=== PATIENT | female | born 1995 | race Caucasian/White ===

== ENCOUNTER → 2019-10-27 | Outpatient (CLI) | payer OTHER ==
[~2019-10-27] MED LIST: AMOCLA875 PO; BIRTH CONTROL PILL; CEPH250A PO; CETI10 PO; CRUTCH4 USE; DIPH25 PO; DOCU100 PO; ERYT.5TO RIGHTEYE; ESOM20 PO; FLUC150A PO; IBUP800 PO; LABE100 PO; MICO2TCA TOP; NAPR375 PO; OMEP40CA12 PO; ONDA4 PO; ONDA4ODT MM; OXYACE5T PO; PRED20 PO; PROM25 PO; RANI150 PO; RXONDA4ODT MM; SULTRIDS PO; TRIA80TC TOP; Verotin-Gr Cap1 EACH PO; Zofran4 MG PO
== END | disposition home or self-care (01) ==
LOC: LAB SHORT 14:08 → LAB EV 14:08
DX: R07.0 Pain in throat (principal)
CPT/HCPCS: 87081

== ENCOUNTER 2023-03-27 14:08 | Emergency (ER) | payer SELFPAY ==
[~2023-03-27] VITALS: Ht 160 cm; Wt 67.1 kg
[2023-03-27 14:17] VITALS: BP 117/97
[2023-03-27 14:39] LABS: BASOPHILS ABSOLUTE AUTO 0.08 K/mm3 (0.00-0.23); BASOPHILS PERCENT AUTO 1 % (0-2); EOSINOPHILS ABSOLUTE AUTO 0.07 K/mm3 (0.00-0.68); EOSINOPHILS PERCENT AUTO 1 % (0-6); Hematocrit 41.8 % (33.0-51.0); Hemoglobin 14.4 g/dL (11.5-16.0); IMMATURE GRAN ABSOLUTE AUTO 0.04 K/mm3 (0.00-0.10); IMMATURE GRAN PERCENT AUTO 0 % (0-1); LYMPHOCYTES ABSOLUTE AUTO 1.92 K/mm3 (0.84-5.20); LYMPHOCYTES PERCENT AUTO 18 % (21-46); MONOCYTES ABSOLUTE AUTO 0.76 K/mm3 (0.16-1.47); MONOCYTES PERCENT AUTO 7 % (4-13); Mean Corpuscular HGB 31.8 pg (26.0-34.0); Mean Corpuscular HGB Conc 34.4 g/dL (31.5-36.5); Mean Corpuscular Volume 92 fL (80-100); Mean Platelet Volume 9.6 fL (9.1-12.4); NEUTROPHILS ABSOLUTE AUTO 7.75 K/mm3 (1.96-9.15); NEUTROPHILS PERCENT AUTO 73 % (41-73); Platelet Count 270 K/mm3 (150-400); RDW Coefficient Variation 11.9 % (11.7-14.2); RDW Standard Deviation 40.4 fL (35.1-46.3); Red Blood Cell Count 4.53 M/mm3 (3.80-5.20); White Blood Cell Count 10.62 K/mm3 (4.00-11.30)
[2023-03-27 15:01] LABS: Albumin, Blood 4.3 g/dL (3.4-5.0); Albumin/Globulin Ratio 1.2 (0.8-1.8); Bilirubin, Total 0.8 mg/dL (0.1-1.0); Bun/Creatinine Ratio 17.3 (12.0-20.0); Calcium, Blood 9.3 mg/dL (8.5-10.1); Creatinine, Blood 0.69 mg/dL (0.40-1.00); Globulin, Blood 3.7 g/dL (2.2-4.0); Potassium, Blood 3.7 mmol/L (3.5-5.5)
[2023-03-27 15:47] LABS: Source, Urine Clean Catch
[2023-03-27 16:04] LABS: Appearance, Urine Clear (Clear); Bilirubin, Urine Neg (Neg); Blood, Urine Neg (Neg); Color, Urine Yellow (P-Yellow); Glucose Qualitative, Urine Neg (Neg); Ketones, Urine Neg (Neg); Leukocyte Esterase, Urine Neg (Neg); Nitrite, Urine Neg (Neg); Protein, Urine Neg (Neg); Urobilinogen, Urine NORM (Normal)
[2023-03-27] MEDS ORDERED: PROM25 PO (17:03)
[2023-03-27] MEDS ORDERED: DICY20 PO (17:03)
== END 2023-03-27 17:12 | disposition home or self-care (01) ==
LOC: ER 14:08
PROVIDERS: Student in an Organized Health Care Education/Training Program
DX: R10.10 Upper abdominal pain, unspecified (principal); R39.11 Hesitancy of micturition; Z87.891 Personal history of nicotine dependence; Z79.899 Other long term (current) drug therapy
CPT/HCPCS: 80053; 81003; 81025; 83690; 85025; 93005; 93010; 99284-25

== ENCOUNTER 2024-01-23 10:48 | Emergency (ER) | payer OTHER ==
[~2024-01-23] VITALS: Ht 162.6 cm; Wt 63.5 kg
[~2024-01-23 10:48] MED LIST changes: +DICY20 PO
[2024-01-23 10:56] VITALS: BP 112/73
== END 2024-01-23 12:48 | disposition home or self-care (01) ==
LOC: ER 10:48
DX: S63.610A Unspecified sprain of right index finger, initial encounter (principal); W23.0XXA Caught, crushed, jammed, or pinched between moving objects, initial encounter; Z87.891 Personal history of nicotine dependence
CPT/HCPCS: 99283